=== PATIENT | male | born 1945 | race Caucasian/White ===

== ENCOUNTER 2020-07-10 10:52 | Outpatient (CLI) | payer MEDICARE, SELFPAY ==
--- NOTE | 2020-07-10 11:08 | CT_ITS ---
WS: [id number] CT CHEST WITHOUT INTRAVENOUS CONTRAST HISTORY: HISTORY OF LUNG CANCER TECHNIQUE: Contiguous 5 mm axial imaging performed on the thorax. Coronal and sagittal reformats are submitted. All CT scans at [facility] use at least one of these dose optimization techniq ues: automated exposure control; mA and/or kV adjustment per patient size (includes targeted exams wh ere dose is matched to clinical indication); or iterative reconstruction. CONTRAST: None DLP: 814.22 mGycm COMPARISON: 01/31/2019 Lungs and central airway: Partial RIGHT upper lobectomy with volume loss in the RIGHT thorax. Linear scar in the RIGHT upper lung field. There is no recurrent mass or adenopathy adjacent to surgical cli ps at the hilum. Emphysematous changes bilaterally with mild interstitial thickening. There are sever al nodules measuring 5 mm at the LEFT lung base which are stable. Pleura: Mild pleural thickening throughout the RIGHT thorax and a very small amount of RIGHT pleural fluid which is unchanged. Heart and pericardium: Normal size heart with no pericardial effusion. Mediastinum and rossana: Mediastinal structures slightly deviate to the RIGHT due to lobectomy. Mediasti nal and hilar lymph nodes are all stable in size with no increase in size or number. Largest lymph no de is 7 mm. Vessels: Mild atherosclerosis aorta. Normal size pulmonary artery. Mild coronary artery calcification . Chest wall and lower neck: No soft tissue masses. Upper abdomen: Small hiatal hernia. Mild perinephric stranding. Visualized liver is negative. Osseous structures: Mild osteopenia with thoracolumbar scoliosis. Mild anterior wedging of T12 is sta ble. CT/CT chest wo con [id number] IMPRESSION: 1. Postoperative changes of a partial RIGHT upper lobectomy. No recurrent mass . No adenopathy. 2. Minimal persistent RIGHT pleural effusion and mild pleural thickening is st able. 3. Mild atherosclerosis coronary arteries and thoracic aorta.
== END 2020-07-10 10:53 | disposition home or self-care (01) ==
PROVIDERS: Family Provider Nurse Practitioner Family; PCP Nurse Practitioner Family; Visit Provider Nurse Practitioner Family
DX: Z85.118 Personal history of other malignant neoplasm of bronchus and lung (principal); J90 Pleural effusion, not elsewhere classified; I25.10 Atherosclerotic heart disease of native coronary artery without angina pectoris; I70.0 Atherosclerosis of aorta
CPT/HCPCS: 71250

== ENCOUNTER 2021-07-13 13:06 | Outpatient (CLI) | payer MEDICARE, SELFPAY ==
--- NOTE | 2021-07-13 13:17 | XR_ITS ---
WS: [id number] XR chest 2V* [id number] REASON FOR EXAM: WHEEZING FINDINGS: The chest is unchanged compared to 05/01/2021. Calcified granulomatous disease in both hemithoraces. No active pulmonary parenchymal or pleural dise ase. Old pleural pericardial and pleural scarring bilaterally. The above findings are associated with surgical jennifer in the right hilar region. Therefore the fift h findings are seen in the right chest may be post thoracotomy. Flattening of the hemidiaphragms which may be indicative of hyperexpansion secondary to obstructive l maldonado disease. XR/XR chest 2V* [id number] IMPRESSION: Stable abnormal chest with no acute abnormality.
== END 2021-07-13 13:07 | disposition home or self-care (01) ==
LOC: RAD 13:10
PROVIDERS: PCP Nurse Practitioner Family; Visit Provider Family Medicine
DX: R06.2 Wheezing (principal)
CPT/HCPCS: 71046

== ENCOUNTER 2022-02-23 14:55 | Outpatient (CLI) | payer MEDICARE, SELFPAY ==
--- NOTE | 2022-02-23 15:08 | CT_ITS ---
WS: [id number] CT CHEST WITHOUT INTRAVENOUS CONTRAST HISTORY: H/O LUNG CANCER TECHNIQUE: Contiguous 5 mm axial imaging performed on the thorax. Coronal and sagittal reformats are submitted. All CT scans at [facility] use at least one of these dose optimization techniques: automated exposure control; mA and/or kV adjustment per patient size (includes targeted exams where dose is matched to clinical indication); or iterative reconstruction. CONTRAST: None DLP: 603.86 mGy.cm COMPARISON: 07/10/2020, 01/31/2019 Lungs and central airway: Status post partial RIGHT upper lobectomy. Focal area of scarring towards t he RIGHT apex. There are a few scattered nodules some of these are calcified and some are not calcifi ed. The largest measures 6 mm in the LEFT lower lobe. Pleura: Normal. No pleural effusion. Heart and pericardium: Normal size heart with no pericardial effusion. Mediastinum and rossana: No enlarging or new lymph nodes. There is mild bronchial wall thickening at the RIGHT hilum. Very similar to the prior examination from 07/10/2020. No increase in the bronchial thic kening. Vessels: Mild atherosclerosis aorta. No aneurysm. Normal size pulmonary artery. Chest wall and lower neck: No soft tissue masses. Upper abdomen: Negative. Osseous structures: Mild anterior compression T12. CT/CT chest wo con [id number] IMPRESSION: 1. Status post partial RIGHT upper lobectomy. Postsurgical changes are stable. 2. Scattered pulmonary nodules are unchanged with no increase in size. No eboni opathy. 3. Mild bronchial wall thickening at the RIGHT hilum is unchanged since 020.
== END 2022-02-23 14:56 | disposition home or self-care (01) ==
PROVIDERS: PCP Nurse Practitioner Family; Visit Provider Nurse Practitioner Family
DX: Z85.118 Personal history of other malignant neoplasm of bronchus and lung (principal); R91.8 Other nonspecific abnormal finding of lung field
CPT/HCPCS: 71250

== ENCOUNTER → 2022-07-07 11:08 | Outpatient (BNVA) | payer MEDICARE, SELFPAY | PROVIDERS: PCP Clinical Nurse Specialist Adult Health; Visit Provider Clinical Nurse Specialist Adult Health | DX: I10 Essential (primary) hypertension (principal); E11.9 Type 2 diabetes mellitus without complications; E78.5 Hyperlipidemia, unspecified | CPT/HCPCS: 80053; 80061; 83036; 85025 ==

== ENCOUNTER → 2022-09-06 14:41 | Outpatient (BNVA) | payer MEDICARE, SELFPAY | PROVIDERS: PCP Clinical Nurse Specialist Adult Health; Visit Provider Clinical Nurse Specialist Adult Health | DX: E11.9 Type 2 diabetes mellitus without complications (principal); I10 Essential (primary) hypertension; E78.5 Hyperlipidemia, unspecified | CPT/HCPCS: 80069; 81003; 82043; 83883; 84155; 84165 ==

== ENCOUNTER → 2023-01-07 10:48 | Outpatient (BNVA) | payer MEDICARE, SELFPAY | PROVIDERS: PCP Clinical Nurse Specialist Adult Health; Visit Provider Clinical Nurse Specialist Adult Health | DX: I10 Essential (primary) hypertension (principal); E11.9 Type 2 diabetes mellitus without complications | CPT/HCPCS: 80053; 80061; 83036; 85025 ==

== ENCOUNTER 2023-01-14 09:12 | Outpatient (CLI) | payer MEDICARE, SELFPAY ==
--- NOTE | 2023-01-14 09:24 | US_ITS ---
WS: [id number] RENAL ULTRASOUND REASON FOR EXAM: STAGE 3B CHRONIC KIDNEY DZ COMPARISON: 07/02/2016, CT abdomen and pelvis 03/08/2019 ORDER DATE: 01/14/2023 9:52 AM TECHNIQUE: Grayscale and Doppler ultrasound examination of the kidneys. FINDINGS: Right kidney: Right kidney measures 11.1 cm x 6.9 cm x 5.1 cm. Cortical width 9 mm Left kidney: Left kidney measures 10.5 cm x 5.6 cm x 5.1 cm. Cortical width 12 mm Moderately heterogenous increased echogenicity of each kidney slightly greater on the left kidney. No rmal vascular flow bilaterally. US/US renal BI* [id number] IMPRESSION: No focal abnormality, heterogenous increased renal echogenicity may diminish th e conspicuity of small cortical abnormalities.
== END 2023-01-14 09:13 | disposition home or self-care (01) ==
LOC: RAD 09:14
PROVIDERS: PCP Clinical Nurse Specialist Adult Health; Visit Provider Internal Medicine Nephrology
DX: N18.32 Chronic kidney disease, stage 3b (principal)
CPT/HCPCS: 76770

== ENCOUNTER 2023-01-21 06:53 | Outpatient (CLI) | payer MEDICARE, SELFPAY ==
--- NOTE | 2023-01-21 07:00 | USCV_ITS ---
Doni Lopez Age: 77 Gender: M : 1945 Exam Date: 01/21/2023 07:10 Ordering Phys: Kavon Weston NP Technologist: CT Exam Location: [facility] [place] Indication: PROCEDURES: Venous duplex imaging was performed in only the right lower extremity. In addition, the posterior tibial and peroneal trunk were evaluated. FINDINGS: Evidence of acute occlusive deep vein thrombosis in the right common femoral vein through to the peroneal vein with abnormal flow dynamics. Small amount of acute DVT extends into the GSV and profunda. CONCLUSIONS Extensive acute, occlusive right DVT as above. Report called to provider before patient was released. Dr. Aixa Plascencia DO (Electronically Signed) Final Date: 21 January 2023 08:16 S
== END 2023-01-21 06:54 | disposition home or self-care (01) ==
LOC: RAD 06:56
PROVIDERS: PCP Clinical Nurse Specialist Adult Health; Visit Provider Clinical Nurse Specialist Adult Health
DX: I82.411 Acute embolism and thrombosis of right femoral vein (principal); I82.451 Acute embolism and thrombosis of right peroneal vein; R60.0 Localized edema
CPT/HCPCS: 93971

== ENCOUNTER 2023-01-21 08:08 | Emergency (ER) | payer MEDICARE, SELFPAY ==
[2023-01-21 08:19] VITALS: BP 155/82; PULSE 70; RESP 16; TEMP 36.5; O2SAT 98; BMI 26.6
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
[2023-01-21] MEDS: enoxaparin 100 mg/mL Syringe 90 MG SUBCUT (08:32)
[2023-01-21 08:50] VITALS: BP 147/80; PULSE 71; RESP 16; O2SAT 97
== END 2023-01-21 08:51 | disposition home or self-care (01) ==
PROVIDERS: Emergency Provider Family Medicine; PCP Clinical Nurse Specialist Adult Health
DX: I82.401 Acute embolism and thrombosis of unspecified deep veins of right lower extremity (principal); J44.9 Chronic obstructive pulmonary disease, unspecified; I10 Essential (primary) hypertension; E78.5 Hyperlipidemia, unspecified; E11.9 Type 2 diabetes mellitus without complications; Z79.4 Long term (current) use of insulin
CPT/HCPCS: 93971; 96372; 99284; J1650

== ENCOUNTER 2023-02-22 11:49 | Outpatient (CLI) | payer MEDICARE, SELFPAY ==
--- NOTE | 2023-02-22 12:00 | CT_ITS ---
WS: [id number] CT chest wo con [id number] HISTORY: hx of lung cancer. new onset DVT TECHNIQUE: Axial imaging performed through the thorax. Coronal and sagittal reformats are submitted. All CT scans at [facility] use at least one of these dose optimization techniques: automated exposure control; mA and/or kV adjustment per patient size (includes targeted exams where dose is mat ched to clinical indication); or iterative reconstruction. CONTRAST: No DLP: 205.15 mGy.cm COMPARISON: 02/23/2022, 07/10/2020 Lungs and central airway: Status post RIGHT upper lobectomy. Postsurgical changes with volume loss in the RIGHT thorax. Chronic emphysema. There are several noncalcified pulmonary nodules scattered thro ughout the lungs. Largest nodule measures 4 mm in the LEFT lower lobe with a very slight increase in size from the most recent exam. May not be a significant increase in size. Bronchiectasis and bronchi al wall thickening with mild tree-in-bud airspace disease in the lower lung yoo. There has been a progression of the RIGHT hilar bronchial thickening and soft tissue since 2019 and m ildly increased since 02/24/2024. Bronchial wall thickening measures up to 10 mm. There is a more foca l nodule centered at the hilum measuring 12 x 15 mm which was not apparent on the prior study. Withou t IV contrast the hilar structures are more difficult to visualize and dissect. Pleura: Normal. No pleural effusion. Heart and pericardium: Normal size heart with no pericardial effusion. Mediastinum and rossana: Mediastinal and hilar lymph nodes. Paratracheal lymph nodes measure up to 8 mm. Vessels: Atherosclerosis aorta. Normal size pulmonary artery. Chest wall and lower neck: No soft tissue masses. Upper abdomen: Soft tissue nodule anterior abdominal wall measures 7 mm. Stable since at least 2018. Small hiatal hernia. No adrenal mass. Osseous structures: Mild anterior wedging of T12. Healed rib deformities in the RIGHT lateral thorax may be postsurgical. CT/CT chest wo con [id number] IMPRESSION: 1. Status post RIGHT upper lobectomy. 2. Progression of RIGHT hilar bronchovascular soft tissue thickening and nodul arity since 02/23/2022. Limited evaluation without IV contrast. Further evaluati on is recommended to exclude recurrent neoplasm. Recommend follow-up PET/CT swathi ging. 3. Subcentimeter noncalcified pulmonary nodules in the LEFT lower lobe without significant increase in size. 4. RIGHT paratracheal lymph nodes remain less than a centimeter. 5. No adrenal mass.
== END 2023-02-22 11:50 | disposition home or self-care (01) ==
LOC: RAD 11:51
PROVIDERS: PCP Clinical Nurse Specialist Adult Health; Visit Provider Clinical Nurse Specialist Adult Health
DX: I82.401 Acute embolism and thrombosis of unspecified deep veins of right lower extremity (principal); Z85.118 Personal history of other malignant neoplasm of bronchus and lung; R91.8 Other nonspecific abnormal finding of lung field; Z90.2 Acquired absence of lung [part of]
CPT/HCPCS: 71250

== ENCOUNTER → 2023-03-10 09:35 | Outpatient (BNVA) | payer MEDICARE, SELFPAY | PROVIDERS: PCP Clinical Nurse Specialist Adult Health; Visit Provider Clinical Nurse Specialist Adult Health | DX: N18.32 Chronic kidney disease, stage 3b (principal); I12.9 Hypertensive chronic kidney disease with stage 1 through stage 4 chronic kidney disease, or unspecified chronic kidney disease; E11.22 Type 2 diabetes mellitus with diabetic chronic kidney disease | CPT/HCPCS: 80069; 82043; 82306; 82310; 82728; 83540; 83970; 85025 ==

== ENCOUNTER 2023-04-02 06:13 | Outpatient (CLI) | payer MEDICARE, SELFPAY ==
--- NOTE | 2023-04-02 11:30 | PETR_ITS ---
PROCEDURE INFORMATION: Exam: PET/CT Skull Base to Mid-thigh Exam date and time: 04/02/2023 11:32 AM Age: 77 years old Clinical indication: Condition or disease and abnormal findings; Primary cancer: Lung cancer; Initial oncological staging assessment; CT chest 02/22/23; Prior surgery; Surgery date: 6+ months; Surgery type: Partial right lung removal; Additional info: HX of lung cancer and recent abnormal CT of chest LABS AND CLINICAL REPORTS: Glucose: 90 mg/dl Treatment strategy for malignancy (PET staging): Restaging (PS) TECHNIQUE: Imaging protocol: Following at least four-hour fasting and following the injection of radiopharmaceutical, low dose CT images were obtained. Then, PET images were obtained. Attenuation corrected images were constructed using the CT scan. Fused images of PET and CT were reviewed. The standardized uptake values (SUV) reported below are maximum values within a region of interest, expressed in gm/ml. Exam includes orbital meatal line to mid-thigh. Radiopharmaceutical: 13.19 mCi F-18 FDG (Fluorodeoxyglucose), IV. Time of imaging post radiopharmaceutical administration: 1 hour Injection site: Left antecubital vein COMPARISON: CT chest wo con [id number] 02/22/2023 and 02/23/2022, PET-CT 06/17/2018 FINDINGS: Brain: Visualized brain has normal physiologic uptake. Paranasal sinuses: No abnormal uptake. Stable mucosal thickening in appear early in the maxillary sinuses with no air-fluid levels compatible with chronic sinusitis. Pharynx: No abnormal uptake. Larynx: Minimally increased uptake in the right vocal cord (3.8 SUV) with no signs of cord paralysis in the opposite cord is indeterminate. Lungs, pleura and trachea: No abnormal uptake. Subtle reticulonodular opacities in the residual right lower lung are similar to 02/22/2023 only minimally more prominent since 02/23/2022. There is stable small linear scar medially in the left lower lobe, and non FDG avid small nodules in the left lower lobe measuring up to 5 mm suggestive of benign findings. No pleural effusion. Heart: Normal physiologic uptake. There is no cardiomegaly. Coronary artery calcification is present. There is no pericardial effusion. Mediastinal space: There is mildly increased uptake in both rossana (3.8 SUV in the right hilum, 3 SUV in the left hilum) with no obvious discrete mass. There is stable small hiatal hernia. Liver: No abnormal uptake. Gallbladder and bile ducts: No abnormal uptake. Pancreas: No abnormal uptake. Spleen: No abnormal uptake. No splenomegaly. Adrenal glands: No abnormal uptake. No nodules. Kidneys and ureters: Normal physiologic uptake. No hydronephrosis. Stomach and bowel: No abnormal uptake. Vasculature: No abnormal uptake. Lymph nodes: See above in mediastinal space . No FDG avid lymphadenopathy in the head, neck, abdomen, pelvis, and extremities. Bones/joints: No abnormal uptake in the visualized axial and appendicular skeleton. Soft tissues: No mass. Persistent linear increased synovial uptake in the left hip joint represents benign finding. [facility] [id number] IMPRESSION: No abnormal radiotracer uptake to suggest definite metastatic disease. Mildly increased uptake in both rossana measuring 3.8 SUV on the right side and 3 SUV on the left side is nonspecific, may represent benign reactive findings rather than malignancy. Subtle reticulonodular opacities in the residual right lower lung are on the minimally more prominent in comparison with 02/23/2022 with no focal discrete FDG avid mass or nodule. Asymmetric activity in the larynx (increased uptake on the right vocal cord and no signs of left vocal cord paralysis) is indeterminate, possibly benign.
== END 2023-04-02 06:14 | disposition home or self-care (01) ==
LOC: RAD 04-04 06:14
PROVIDERS: PCP Clinical Nurse Specialist Adult Health; Visit Provider Clinical Nurse Specialist Adult Health
DX: Z85.118 Personal history of other malignant neoplasm of bronchus and lung (principal); R91.8 Other nonspecific abnormal finding of lung field
CPT/HCPCS: 78815; A9552

== ENCOUNTER → 2023-07-11 11:31 | Outpatient (BNVA) | payer MEDICARE, SELFPAY | PROVIDERS: PCP Clinical Nurse Specialist Adult Health; Visit Provider Clinical Nurse Specialist Adult Health | DX: E11.9 Type 2 diabetes mellitus without complications (principal); Z23 Encounter for immunization; I10 Essential (primary) hypertension; N18.32 Chronic kidney disease, stage 3b | CPT/HCPCS: 80053; 83036; 84443; 85025 ==

== ENCOUNTER → 2023-10-10 14:36 | Outpatient (BNVA) | payer MEDICARE, SELFPAY | PROVIDERS: PCP Clinical Nurse Specialist Adult Health; Visit Provider Clinical Nurse Specialist Adult Health | DX: E87.5 Hyperkalemia (principal) | CPT/HCPCS: 80048 ==

== ENCOUNTER → 2024-01-11 12:39 | Outpatient (BNVA) | payer MEDICARE, SELFPAY | PROVIDERS: PCP Clinical Nurse Specialist Adult Health; Visit Provider Clinical Nurse Specialist Adult Health | DX: E78.49 Other hyperlipidemia (principal); E11.22 Type 2 diabetes mellitus with diabetic chronic kidney disease; N18.32 Chronic kidney disease, stage 3b | CPT/HCPCS: 80053; 80061; 83036; 85025 ==

== ENCOUNTER 2024-03-06 10:58 | Outpatient (CLI) | payer MEDICARE, SELFPAY ==
[2024-03-06 11:36] LABS: Basophils # 0.1 10^3/uL (0.0-0.1); Basophils % 0.9 %; Eosinophils # 0.2 10^3/uL (0.0-0.8); Eosinophils % 2.6 %; Hematocrit 48.1 % (37-53); Lymphocytes # 1.6 10^3/uL (0.8-4.8); Lymphocytes % 19.3 %; Mean Corpuscular HGB Conc 32.8 g/dL (30-55); Mean Corpuscular Hemoglobin 29.8 pg (27-33); Mean Corpuscular Volume 90.8 fl (82-101); Mean Platelet Volume 8.3 fL (7.4-10.4); Monocytes # 0.6 10^3/uL (0.2-0.9); Monocytes % 7.4 %; Neutrophils % 68.6 %; Nucleated Red Blood Cells % 0 %; Platelet Count 229 10^3/cmm (157-399); Red Cell Distribution Width 13.6 % (12.1-15.1); White Blood Count 8.15 10^3/uL (3.29-11.43)
[2024-03-06 11:54] LABS: Creatinine Urine, Random 66 mg/dL (39-259); Microalbum Creatinine Ratio Ur 15 mg/dL (0-20); Microalbumin Random Urine 1 ug/dL (0-20)
[2024-03-06 11:57] LABS: Albumin Level 4.1 g/dL (3.5-5.2); Anion Gap 12.8 (5-19); Blood Urea Nitrogen 23 mg/dL (8-23); Calcium 8.4 mg/dL (8.5-10.5); Carbon Dioxide 26 mmol/L (22-29); Chloride 106 mmol/L (98-107); Glucose 109 mg/dL (65-115); Phosphorus 2.7 mg/dL (2.5-4.5); Potassium 4.8 mmol/L (3.5-5.1); Sodium 140 mmol/L (136-145)
[2024-03-06 12:00] LABS: Calcium 8.4 mg/dL (8.5-10.5)
[2024-03-06 12:07] LABS: Parathyroid Hormone 42.9 pg/mL (15-65)
[2024-03-06 12:13] LABS: 25 Hydroxy Vitamin D 45 ng/mL (30-100)
== END 2024-03-06 10:59 | disposition home or self-care (01) ==
LOC: LAB 11:02
PROVIDERS: PCP Clinical Nurse Specialist Adult Health; Visit Provider Registered Nurse
DX: N18.32 Chronic kidney disease, stage 3b (principal); E55.9 Vitamin D deficiency, unspecified
CPT/HCPCS: 36415; 80069; 82044; 82306; 82310; 83970; 85025

== ENCOUNTER → 2024-09-05 13:40 | Outpatient (BNVA) | payer MEDICARE, SELFPAY | PROVIDERS: PCP Clinical Nurse Specialist Adult Health; Visit Provider Family Medicine | DX: I10 Essential (primary) hypertension (principal); E11.9 Type 2 diabetes mellitus without complications; E78.49 Other hyperlipidemia; N18.32 Chronic kidney disease, stage 3b; Z79.01 Long term (current) use of anticoagulants | CPT/HCPCS: 80053; 83036; 84443; 85025 ==

== ENCOUNTER 2024-11-26 09:48 | Outpatient (CLI) | payer MEDICARE, SELFPAY ==
--- NOTE | 2024-11-26 10:00 | CT_ITS ---
WS: [id number] CT chest wo con [id number] HISTORY: f/u 2022 lung nodules TECHNIQUE: Axial imaging performed through the thorax. Coronal and sagittal reformats are submitted. All CT scans at [facility] use at least one of these dose optimization techniques: automated exposure control; mA and/or kV adjustment per patient size (includes targeted exams where dose is matched to clinical indication); or iterative reconstruction. CONTRAST: None DLP: 287.77 mGy.cm COMPARISON: 02/22/2023, PET/CT 04/02/2023 Lungs and central airway: Prior RIGHT upper lobectomy. Lungs are hyperexpanded. Reidentified are numerous noncalcified and calcified pulmonary nodules in the RIGHT lower lobe with the largest measuring 7 mm. No progression of the size or number of nodules since 02/22/2023. Additional mild bronchiectasis and bronchial thickening at the lung bases with LEFT basilar atelectasis. Pleura: Normal. No pleural effusion. Heart and pericardium: Normal size heart with no pericardial effusion. Mediastinum and rossana: Limited evaluation of the hilar regions without IV contrast. Similar configuration as on the prior study. Small paratracheal lymph nodes. Vessels: Mild atherosclerosis aorta. Normal size pulmonary artery. Chest wall and lower neck: No soft tissue masses. Upper abdomen: Small hiatal hernia. Cholelithiasis without acute cholecystitis. No adrenal mass. Osseous structures: Mild anterior wedging of T12. Similar to the prior study. No destructive bone lesions. CT/CT chest wo con [id number] IMPRESSION: 1. Stable LEFT lower lobe pulmonary nodules. Largest nodule is 7 mm. These nod ules were negative on prior PET/CT imaging. 2. Subsegmental atelectasis at the LEFT lung base. 3. Prior RIGHT upper lobectomy. 4. Mild bronchiectasis in the lower lung yoo. 5. Cholelithiasis without acute cholecystitis.
== END 2024-11-26 09:49 | disposition home or self-care (01) ==
LOC: RAD 09:51
PROVIDERS: PCP Family Medicine; Visit Provider Family Medicine
DX: R91.8 Other nonspecific abnormal finding of lung field (principal); J98.11 Atelectasis; Z98.890 Other specified postprocedural states; J47.9 Bronchiectasis, uncomplicated; K80.20 Calculus of gallbladder without cholecystitis without obstruction; R59.0 Localized enlarged lymph nodes; I70.0 Atherosclerosis of aorta; K44.9 Diaphragmatic hernia without obstruction or gangrene; M48.54XD Collapsed vertebra, not elsewhere classified, thoracic region, subsequent encounter for fracture with routine healing
CPT/HCPCS: 71250

== ENCOUNTER 2025-03-04 12:39 | Outpatient (CLI) | payer MEDICARE, SELFPAY ==
[2025-03-04 13:55] LABS: Basophils # 0.1 10^3/uL (0.0-0.1); Basophils % 0.8 %; Eosinophils # 0.1 10^3/uL (0.0-0.8); Eosinophils % 1.6 %; Lymphocytes # 1.4 10^3/uL (0.8-4.8); Lymphocytes % 15.5 %; Mean Corpuscular HGB Conc 32.9 g/dL (30-55); Mean Corpuscular Hemoglobin 29.7 pg (27-33); Mean Corpuscular Volume 90.4 fl (82-101); Mean Platelet Volume 8.5 fL (7.4-10.4); Monocytes # 0.6 10^3/uL (0.2-0.9); Monocytes % 7.4 %; Neutrophils % 73.6 %; Nucleated Red Blood Cells % 0 %; Platelet Count 215 10^3/cmm (157-399); Red Blood Count 4.98 10^6/uL (3.85-5.65); Red Cell Distribution Width 13.2 % (12.1-15.1)
[2025-03-04 14:17] LABS: Albumin Level 3.8 g/dL (3.5-5.2); Anion Gap 15.6 (5-19); Blood Urea Nitrogen 23 mg/dL (8-23); Calcium 8.7 mg/dL (8.5-10.5); Carbon Dioxide 23 mmol/L (22-29); Chloride 105 mmol/L (98-107); Glucose 112 mg/dL (65-115); Phosphorus 2.4 mg/dL (2.5-4.5); Potassium 4.6 mmol/L (3.5-5.1); Sodium 139 mmol/L (136-145)
[2025-03-04 14:19] LABS: Calcium 8.6 mg/dL (8.5-10.5)
[2025-03-04 14:24] LABS: Creatinine Urine, Random 38 mg/dL (39-259); Microalbum Creatinine Ratio Ur 26 mg/dL (0-20); Microalbumin Random Urine 1 ug/dL (0-20)
[2025-03-04 14:26] LABS: Parathyroid Hormone 56.7 pg/mL (15-65)
== END 2025-03-04 12:40 | disposition home or self-care (01) ==
PROVIDERS: PCP Family Medicine; Visit Provider Registered Nurse
DX: N18.32 Chronic kidney disease, stage 3b (principal)
CPT/HCPCS: 36415; 80069; 82044; 82310; 83970; 85025

== ENCOUNTER → 2025-03-14 14:17 | Outpatient (BNVA) | payer MEDICARE, SELFPAY | PROVIDERS: PCP Family Medicine; Visit Provider Family Medicine | DX: E11.9 Type 2 diabetes mellitus without complications (principal); I10 Essential (primary) hypertension; E78.49 Other hyperlipidemia | CPT/HCPCS: 80061; 83036 ==

== ENCOUNTER → 2025-09-09 13:52 | Outpatient (BNVA) | payer MEDICARE, SELFPAY | PROVIDERS: PCP Family Medicine; Visit Provider Family Medicine | DX: E11.9 Type 2 diabetes mellitus without complications (principal); I10 Essential (primary) hypertension; E78.49 Other hyperlipidemia; Z79.01 Long term (current) use of anticoagulants; N18.32 Chronic kidney disease, stage 3b; Z13.818 Encounter for screening for other digestive system disorders | CPT/HCPCS: 80053; 83036; 84439; 84443; 86803 ==